=== PATIENT | female | born 1960 | race Caucasian/White ===

== ENCOUNTER 2016-11-29 20:31 | Emergency (ER) | payer BC, OTHER ==
[2016-11-29] MEDS ORDERED: ONDANSETRON 4 MG ODT STARTER PACK 2 TAB BTL PO STA (21:53)
[2016-11-29] MEDS ORDERED: LORazepam 1 MG TAB PO STA (21:55)
[2016-11-29] MEDS ORDERED: MECLIZINE 12.5 MG TAB PO STA (21:56)
--- NOTE | 2016-11-29 22:23 | ED ---
Dizziness HPI - General Chief Complaint: Dizziness Stated Complaint: Dizzy/Faint Time Seen by Provider: 11/29/16 21:20 Source: patient, RN notes reviewed Mode of arrival: wheelchair Limitations: no limitations - History of Present Illness Initial Comments: Patient is a 56-year-old female presenting to the with chief complaint of vertigo-like dizziness for approximately 3 days. Patient reports that she saw her primary care physician was given a prescription for meclizine and instructed to double maneuvers to help with her symptoms area patient reports that her vertigo is intermittently and only with total laying down position. Patient states that she does feel that she is has fluid in her ear. Patient reports is her first time that she has had vertigo. Patient reports that she feels significant sinus congestion and pressure. Patient reports that she does not take like taking decongestants as they do make her heart feels racing. Patient denies any headache or peripheral paresthesias or neurological symptoms at this time. She denies any vertigo at this time take this only when she lays completely flat. She denies any dizziness with rotation of the head. Patient is a non smoker, denies any cardiac history, and has no history of hypertension. She denies changes in vision, chest pain, shortness of breath, abdominal pain, vomiting. Patient denies changes in bowel or bladder habits. - Related Data Home Medications Medication Instructions Recorded Confirmed Pantoprazole Sodium [Protonix] 40 mg PO BID 07/23/15 11/29/16 Ranitidine HCl [Zantac] 150 mg PO HS 07/23/15 11/29/16 Fluticasone Nasal [place] [Flonase 2 sprays EA NOSTRIL DAILY 11/29/16 11/29/16 Nasal [place]] Ibuprofen [Advil] 200 mg PO Q8HR PRN 11/29/16 11/29/16 Loratadine [Claritin] 10 mg PO DAILY 11/29/16 11/29/16 Meclizine [Antivert] 25 mg PO TID PRN 11/29/16 11/29/16 Previous Rx's Medication Instructions Recorded LORazepam [Ativan] 0.5 mg PO BID #10 tab 11/29/16 Ondansetron Odt [Zofran ODT] 4 mg PO Q8HR PRN #12 tab 11/29/16 Allergies Allergy/AdvReac Type Severity Reaction Status Date / Time codeine Allergy Unknown Verified 11/29/16 21:08 levofloxacin [From Levaquin] Allergy Unknown Verified 11/29/16 21:08 Review of Systems ROS Statement: Those systems with pertinent positive or pertinent negative responses have been documented in the HPI. ROS Other: All systems not noted in ROS Statement are negative. Past Medical History Past Medical History: GERD/Reflux Additional Past Medical History / Comment(s): vertigo History of Any Multi-Drug Resistant Organisms: None Reported Past Surgical History: Breast Surgery, Cholecystectomy, Tubal Ligation Past Psychological History: Anxiety Smoking Status: Never smoker Past Alcohol Use History: Rare Past Drug Use History: None Reported General Exam - General Exam Comments Initial Comments: Patient is a well-appearing 56-year-old female. She is on appear to be in any acute distress. Limitations: no limitations General appearance: alert, in no apparent distress Head exam: Present: atraumatic, normocephalic, normal inspection Eye exam: Present: normal appearance, PERRL, EOMI. Absent: scleral icterus, conjunctival injection, periorbital swelling ENT exam: Present: normal exam, normal oropharynx, mucous membranes moist, TM's normal bilaterally (Patient has evidence of fluid in bilateral eardrums.) Neck exam: Present: normal inspection, full ROM. Absent: tenderness, meningismus, lymphadenopathy Respiratory exam: Present: normal lung sounds bilaterally. Absent: respiratory distress, wheezes, rales, rhonchi, stridor Cardiovascular Exam: Present: regular rate, normal rhythm, normal heart sounds. Absent: systolic murmur, diastolic murmur, rubs, gallop, clicks GI/Abdominal exam: Present: soft, normal bowel sounds. Absent: distended, tenderness, guarding, rebound, rigid Extremities exam: Present: normal inspection, full ROM, normal capillary refill. Absent: tenderness, pedal edema, joint swelling, calf tenderness Back exam: Present: normal inspection Neurological exam: Present: alert, oriented X3, CN II-XII intact Expanded Patient oriented to: Present: person, place, time Speech: Present: fluid speech Cranial nerves: EOM's Intact: Normal, Gag Reflex: Normal, Tongue Deviation: Normal, Nystagmus: Abnormal Right (Patient does have evidence of right-sided horizontal nystagmus.) Cerebellar function: Finger to Nose: Normal Upper motor neuron: William Neglect: Normal, Pronator Drift: Normal Sensory exam: Upper Extremity Light Touch: Normal, Lower Extremity Light Touch: Normal Motor strength exam: RUE: 5, LUE: 5, RLE: 5, LLE: 5 Eye Response: (4) open spontaneously Motor Response: (6) obeys commands Verbal Response: (5) oriented [place] Total: 15 (Patient has negative Romberg sign. Patient is able to ambulate throughout the emergency room with no evidence of altered gait.) Psychiatric exam: Present: normal affect, normal mood Skin exam: Present: warm, dry, intact, normal color. Absent: rash Course Vital Signs 11/29/16 11/29/16 20:51 22:55 Temperature 98.0 F 97.0 F L Pulse Rate 86 76 Respiratory 18 16 Rate Blood Pressure 136/85 159/89 O2 Sat by Pulse 98 97 Oximetry Medical Decision Making - Medical Decision Making Patient is a 56 year old female with intermittent vertigo for the past 3 days. Patient reports she saw her primary care and was instructed to do different maneuvers to help with the vertigo, patient reports that when she attempted lorene manuevers this caused the room to spin worse and she felt nauseated. Patient reports the vertigo is worse when laying flat and on her right side. Patient states she took one meclizine today. Patient has no neurological deficits at this time. Patient has negative cardiac histrory and is a non smoker. Patient reports that she feels well when sitting in bed, and denies vertigo at this time. Patient does have horizontal nystagmas with right sided gaze. Patient will be given a referral to ENT, Rx for Zofran and Ativan for her vertigo symptoms. PAtient also advised to use a decongestant to remove some of the fluid in the ears that is causing the vertigo. Return parameters discussed, patient understands treatment plan and will comply. Patient case was discussed with Dr. Lopez, and patient will be discharged home at this time. Disposition Clinical Impression: Benign paroxysmal positional vertigo Disposition: HOME SELF-CARE Condition: Good Instructions: Dizziness (ED), Benign Paroxysmal Positional Vertigo (ED) Additional Instructions: Patient instructed to follow-up with ENT specialist in one to 2 days. Patient is advised to follow-up with primary care in addition as well. Patient instructed to return to the [facility] if any alarming signs or symptoms occur. Prescriptions: LORazepam [Ativan] 0.5 mg PO BID #10 tab Ondansetron Odt [Zofran ODT] 4 mg PO Q8HR PRN #12 tab PRN Reason: Nausea Referrals: Dominique Hirsch DO [Primary Care Provider] - 1-2 days Royal Rodriguez MD [STAFF PHYSICIAN] - 1-2 days Time of Disposition: 21:50
[2016-11-29 22:57] VITALS: BP 159/89; PULSE 76; RESP 16; TEMP 97
== END 2016-11-29 22:55 | disposition home or self-care (01) ==
LOC: EC 20:31
DX: H81.10 Benign paroxysmal vertigo, unspecified ear (principal); Z79.899 Other long term (current) drug therapy; Z88.5 Allergy status to narcotic agent; Z88.1 Allergy status to other antibiotic agents; K21.9 Gastro-esophageal reflux disease without esophagitis
CPT/HCPCS: 99283; S0119

== ENCOUNTER → 2017-05-24 | Outpatient (CLI) | payer OTHER ==
--- NOTE | 2017-05-24 12:19 | XR ---
Sinus HISTORY: Right maxillary sinus pain 4 views of the sinuses No air-fluid levels to suggest acute sinusitis. Bone mineralization is maintained. Orbits appear inta ct. IMPRESSION: Correlate for point tenderness to assess for sinusitis. Sinus CT may be of benefit.
== END | disposition home or self-care (01) ==
LOC: RADXRYALE 12:03
PROVIDERS: ATTEND Family Medicine
DX: J34.9 Unspecified disorder of nose and nasal sinuses (principal)
CPT/HCPCS: 70220

== ENCOUNTER → 2017-11-25 | Outpatient (CLI) | payer BC | LOC: RADUSWWP 15:40 | PROVIDERS: ATTEND Family Medicine | DX: Z53.9 Procedure and treatment not carried out, unspecified reason (principal) ==

== ENCOUNTER → 2017-12-06 | Outpatient (CLI) | payer BC ==
--- NOTE | 2017-12-06 21:52 | US ---
EXAMINATION TYPE: US thyroid st tissue head/neck DATE OF EXAM: 12/06/2017 COMPARISON: Thyroid ultrasound January 24, 2012 CLINICAL HISTORY: E04.2 NONTOXIC MULTINODULAR GOITER. follow up GLAND SIZE: Right Lobe: 4.9 x 1.2 x 1.7 cm Overall Parenchyma: heterogenous Left Lobe: 3.8 x 1.3 x 1.4 cm Overall Parenchyma: heterogeneous Isthmus Thickness: 0.2 cm NODULES RIGHT: # of nodules measured on right: 2 1. 0.7 X 0.6 x 0.6 cm hypoechoic solid nodule at the upper pole with well-defined margins. This no dule is wider than tall and shows intranodular vascularity. Prior size: 0.5 x 0.5 x 0.6 cm 2. 0.5 X 0.4 x 0.6 cm hypoechoic solid nodule at the lower pole with well-defined margins. This nod ule is wider than tall and shows intranodular vascularity. Prior size: 0.4 x 0.4 x 0.4 cm LEFT: # of nodules measured on left: 2 1. 0.9 X 0.8 x 0.5 cm hypoechoic solid nodule at the upper pole with well-defined margins. This no dule is wider than tall and shows intranodular vascularity. Prior size: 0.6 x 0.6 x 0.5cm 2. 0.5 X 0.2 x 0.4 cm hypoechoic solid nodule at the lower pole with well-defined margins. This nod ule is wider than tall and shows no intranodular vascularity. Prior size: 0.3 x 0.2 x 0.4 cm ISTHMUS: # of nodules measured in the isthmus: 0 Bilateral neck scanned, no evidence of lymphadenopathy. IMPRESSION: There is heterogeneous small size thyroid gland was cyst stable scattered small nodules r edemonstrated but no new suspicious greater than 1 cm solid or cystic nodules identified bilaterally.
== END | disposition home or self-care (01) ==
LOC: RADUSWWP 15:27
PROVIDERS: ATTEND Family Medicine
DX: E04.2 Nontoxic multinodular goiter (principal)
CPT/HCPCS: 76536

== ENCOUNTER 2019-02-23 16:48 | Emergency (ER) | payer BC ==
[2019-02-23 16:53] VITALS: BP 144/85; PULSE 74; RESP 18; TEMP 98.1
--- NOTE | 2019-02-23 17:25 | ED ---
Lower Extremity Injury HPI - General Chief Complaint: Extremity Injury, Lower Stated Complaint: lt ankle injury Time Seen by Provider: 02/23/19 17:04 Source: patient Mode of arrival: ambulatory Limitations: no limitations - History of Present Illness Initial Comments: 59-year-old female presenting today for chief complaint of left ankle pain. Patient states Saturday she rolled her ankle while walking. She states a few days prior she had hit the same ankle on the lateral aspect with a part of a dog leash causing a bruise. Patient states she was able to ambulate after both rolling her ankle and hitting it with the dog leash. She states the pain has been persistent and there is significant swelling of the left ankle. Patient was concerned of fracture present for evaluation emergency department. Patient denies numbness tingling loss sensation patient is able to range at the left ankle however is tender. Remaining review of systems negative patient denies fall injury to head neck or back or any other extremity. Remaining review of systems negative. Pt denies anticoagulation use. - Related Data Home Medications Medication Instructions Recorded Confirmed Pantoprazole Sodium [Protonix] 40 mg PO BID 07/23/15 11/29/16 Ranitidine HCl [Zantac] 150 mg PO HS 07/23/15 11/29/16 Fluticasone Nasal [place] [Flonase 2 sprays EA NOSTRIL DAILY 11/29/16 11/29/16 Nasal [place]] Ibuprofen [Advil] 200 mg PO Q8HR PRN 11/29/16 11/29/16 Loratadine [Claritin] 10 mg PO DAILY 11/29/16 11/29/16 Meclizine [Antivert] 25 mg PO TID PRN 11/29/16 11/29/16 Previous Rx's Medication Instructions Recorded LORazepam [Ativan] 0.5 mg PO BID #10 tab 11/29/16 Ondansetron Odt [Zofran ODT] 4 mg PO Q8HR PRN #12 tab 11/29/16 Allergies Allergy/AdvReac Type Severity Reaction Status Date / Time codeine Allergy Unknown Verified 02/23/19 16:53 levofloxacin [From Levaquin] Allergy Unknown Verified 02/23/19 16:53 Review of Systems ROS Statement: Those systems with pertinent positive or pertinent negative responses have been documented in the HPI. ROS Other: All systems not noted in ROS Statement are negative. Past Medical History Past Medical History: GERD/Reflux Additional Past Medical History / Comment(s): vertigo History of Any Multi-Drug Resistant Organisms: None Reported Past Surgical History: Breast Surgery, Cholecystectomy, Tubal Ligation Past Psychological History: Anxiety Smoking Status: Never smoker Past Alcohol Use History: Rare Past Drug Use History: None Reported General Exam - General Exam Comments Initial Comments: General: The patient is awake and alert, in no distress, and does not appear acutely ill. Eye: Pupils are equal, round and reactive to light, extra-ocular movements are intact. No nystagmus. There is normal conjunctiva bilaterally. No signs of icterus. Ears, nose, mouth and throat: There are moist mucous membranes and no oral lesions. Neck: The neck is supple, there is no tenderness or JVD. Cardiovascular: There is a regular rate and rhythm. No murmur, rub or gallop is appreciated. Respiratory: Lungs are clear to auscultation, respirations are non-labored, breath sounds are equal. No wheezes, stridor, rales, or rhonchi. Gastrointestinal: [Soft, non-distended, non-tender abdomen without masses or organomegaly noted. There is no rebound or guarding present. No CVA tenderness. Bowel sounds are unremarkable.] Musculoskeletal: Upon inspection of the ankles bilaterally there is ecchymosis over the left lateral ankle and swelling along the lateral malleolus. Patient is diffusely tender a patient of the lateral aspect of the left ankle joint. Normal ROM, with no tenderness of the right ankle, patient does admit to pain with range of motion at the left ankle however she is able to fully range. Strength 5/5 of the right ankle patient refuses to fully strength test at the left ankle secondary to discomfort. Sensation intact both proximal and distal to injury site. DP pulses equal bilaterally 2+. Neurological: A&O x 3. CN II-XII intact, There are no obvious motor or sensory deficits. Coordination appears grossly intact. Speech is normal. Skin: Skin is warm and dry and no rashes or lesions are noted. Psychiatric: Cooperative, appropriate mood & affect, normal judgment. Limitations: no limitations Course Vital Signs 02/23/19 16:50 Temperature 98.1 F Pulse Rate 74 Respiratory 18 Rate Blood Pressure 144/85 O2 Sat by Pulse 99 Oximetry Medical Decision Making - Medical Decision Making Well-appearing 59-year-old female presenting for left ankle pain. Patient states she rolled her left ankle inward about 4 days ago. Patient states pain has been persistent as as well as swelling and ecchymosis. Pt is neurovascularly intact. Imaging studies revealed no acute osseous injury, most likely ankle sprain. Patient was placed in Air-Stirrup's. I discussed return parameters as well as importance of follow-up outpatient in 2-3 days with orthopedic surgery. Patient was provided prescription for crutches for comfort. Patient verbalized understanding to both return parameters and follow-up. Patient is agreeable dis charge this time as well as symptomatic treatment with ice elevation and compression and rest. Patient will continue to take ibuprofen and Tylenol for pain management as needed. Patient discharged appearing well after discussed the case at time provider Dr. Gardner Disposition Clinical Impression: Left ankle sprain, Left ankle pain Disposition: HOME SELF-CARE Condition: Good Instructions (If sedation given, give patient instructions): Ankle Sprain (ED), R.I.C.E. Treatment (ED) Additional Instructions: Please use medication as discussed. Please follow-up with orthopedic surgery in the next 2-3 days. Please return to emergency room if the symptoms increase or worsen or for any other concerns. Is patient prescribed a controlled substance at d/c from ED?: No Referrals: Dominique Hirsch DO [Primary Care Provider] - 1-2 days Mack Houston MD [Medical Doctor] - 1-2 days Time of Disposition: 18:04
--- NOTE | 2019-02-23 17:54 | XR ---
EXAMINATION TYPE: XR ankle complete LT DATE OF EXAM: 02/23/2019 CLINICAL HISTORY: Lateral pain and swelling after injury. TECHNIQUE: Frontal, lateral and oblique images of the left ankle are obtained. COMPARISON: None. FINDINGS: There is no acute fracture/dislocation evident in the left ankle. The ankle mortise appea rs within normal limits. There is mild subcutaneous edema fairly diffusely slightly more prominent ov er the lateral malleolus. Incidental moderate size inferior calcaneal spur. IMPRESSION: There is no acute fracture or dislocation in the left ankle.
== END 2019-02-23 18:10 | disposition home or self-care (01) ==
LOC: EC 16:48
DX: S93.402A Sprain of unspecified ligament of left ankle, initial encounter (principal); K21.9 Gastro-esophageal reflux disease without esophagitis; F41.9 Anxiety disorder, unspecified; Z79.899 Other long term (current) drug therapy; Z88.1 Allergy status to other antibiotic agents; Z88.5 Allergy status to narcotic agent; X50.1XXA Overexertion from prolonged static or awkward postures, initial encounter; Y93.01 Activity, walking, marching and hiking
CPT/HCPCS: 29515; 99283

== ENCOUNTER → 2020-06-09 | Outpatient (CLI) | payer BC ==
[2020-06-09 16:55] LABS: Chol/HDL Ratio 3.59; LDL Cholesterol,Calculated 161.4 mg/dL (0.0-131.0); VLDL Calculation 14.6 mg/dL (5.00-40.00)
[2020-06-09 17:47] LABS: Hemoglobin A1C 5.8 % (4.0-6.0)
== END | disposition home or self-care (01) ==
LOC: LABWHC1 09:17
PROVIDERS: ATTEND Nurse Practitioner Family
DX: E78.2 Mixed hyperlipidemia (principal); E55.9 Vitamin D deficiency, unspecified; R73.01 Impaired fasting glucose
CPT/HCPCS: 36415; 80061; 82306; 83036

== ENCOUNTER → 2020-06-09 | Outpatient (CLI) | payer BC ==
--- NOTE | 2020-06-09 09:21 | CT ---
EXAMINATION TYPE: CT sinus wo con DATE OF EXAM: 06/09/2020 COMPARISON: None HISTORY: Sinus pain and pressure CT DLP: 648 mGycm. Automated Exposure Control for Dose Reduction was Utilized. TECHNIQUE: CT scan of the sinuses is performed without contrast, axial images are obtained, coronal r eformatted images are also reviewed. FINDINGS: The paranasal sinuses including the frontal, ethmoid, sphenoid, and maxillary sinuses bila terally are well-aerated without abnormal opacification. The ostiomeatal complex is patent bilateral ly on the coronal images. Bilateral Delicia cells are noted. Visualized portion of mastoid air cells show no abnormal opacification. The globes are intact bilate rally. IMPRESSION: The sinuses are clear and the ostiomeatal complex is patent bilaterally.
--- NOTE | 2020-06-09 10:28 | US ---
EXAMINATION TYPE: US thyroid st tissue head/neck DATE OF EXAM: 06/09/2020 COMPARISON: CLINICAL HISTORY: E04.2 goiter. Follow up thyroid nodules. No bx. GLAND SIZE: Right Lobe: 4.6 x 1.5 x 1.5 cm Overall Parenchyma: heterogenous Left Lobe: 3.9 x 1.5 x 1.3 cm Overall Parenchyma: heterogeneous Isthmus Thickness: 0.2 cm NODULES RIGHT: # of nodules measured on right: 0 1. 0.7 X 0.6 x 0.6 cm hypoechoic nodule at the upper pole with well-defined margins. This nodule i s wide as tall and shows intranodular vascularity. Prior size: 0.7 x 0.6 x 0.6 cm 2. 0.7 X 0.6 x 0.5 cm mixed nodule at the mid/lower pole with well-defined margins. This nodule is wider than tall and shows intranodular vascularity. Prior size: 0.5 x 0.4 x 0.6 cm LEFT: # of nodules measured on left: 2 1. 1.0 X 0.7 x 0.5 cm hypoechoic mixed nodule at the upper pole with well-defined margins. This no dule is wider than tall and shows intranodular vascularity. Prior size: 1.0 x 0.8 x 0.5 cm 2. 0.3 X 0.2 x 0.2 cm hypoechoic nodule at the lower pole with well-defined margins. This nodule is wide as tall and shows no intranodular vascularity. Prior size: 0.5 x 0.2 x 0.4 cm ISTHMUS: # of nodules measured in the isthmus: 0 Bilateral neck scanned, no evidence of lymphadenopathy. Gland is somewhat heterogeneous echotexture IMPRESSION: Essentially stable thyroid ultrasound
== END | disposition home or self-care (01) ==
LOC: RADCTMAIN 08:35
PROVIDERS: ATTEND Family Medicine
DX: J30.1 Allergic rhinitis due to pollen (principal); E04.2 Nontoxic multinodular goiter
CPT/HCPCS: 70486; 76536

== ENCOUNTER → 2021-01-26 | Outpatient (CLI) | payer BC ==
--- NOTE | 2021-02-06 10:14 | MM ---
Reason for exam: screening (asymptomatic). Last mammogram was performed 1 year and 6 months ago. History: Patient is postmenopausal. Family history of breast cancer in maternal aunt at age 50 and breast cancer in paternal cousin. US Left CoreBiopsy of the left breast, 2000. Excisional biopsy of the left breast. Excisional biopsy of the right breast. Physical Findings: A clinical breast exam by your physician is recommended on an annual basis and results should be correlated with mammographic findings. MG 3D Screening Mammo W/Cad Bilateral CC and MLO view(s) were taken. Prior study comparison: July 27, 2019, mammogram, performed at [facility]. July 28, 2015, mammogram, performed at [facility]. The breast tissue is heterogeneously dense. This may lower the sensitivity of mammography. Stable benign calcifications. There is no discrete abnormality. No significant changes when compared with prior studies. ASSESSMENT: Benign, BI-RAD 2 RECOMMENDATION: Routine screening mammogram of both breasts in 1 year.
== END | disposition home or self-care (01) ==
LOC: RADMAMWWP 09:04
PROVIDERS: ATTEND Obstetrics & Gynecology
DX: Z12.31 Encounter for screening mammogram for malignant neoplasm of breast (principal)
CPT/HCPCS: 77063; 77067

== ENCOUNTER 2022-02-27 06:52 | Day surgery (SDC) | payer BC ==
[2022-02-02 14:15] VITALS: BMI 37.9
[~2022-02-27 06:52] MED LIST: LACTATED RINGERS 1,000 ML IV SCH; LIDOCAINE 1% (10MG/ML) FOR IV START INTRADERMA PRN
[2022-02-27 07:12] VITALS: RESP 16; TEMP 98
[2022-02-27] MEDS ORDERED: LIDOCAINE 1% INJ 10MG/ML (20 ML MDV) ONE (08:05)
[2022-02-27] MEDS ORDERED: PROPOFOL 10 MG/ML 20 ML VIAL IV ONE (08:05)
--- NOTE | 2022-02-27 08:18 | P.PCN ---
Date of Procedure: 02/27/22 Procedure(s) Performed: BRIEF HISTORY: Patient is a 62-year-old pleasant 5. scheduled for an elective colonoscopy as a part of screening for colorectal neoplasia. Her last colonoscopy was 10 years ago. PROCEDURE PERFORMED: Colonoscopy. PREOPERATIVE DIAGNOSIS: Screening for colon cancer. IV sedation per Anesthesia. PROCEDURE: After informed consent was obtained, the patient, was brought into the endoscopy unit. IV sedation was administered by Anesthesia under continuous monitoring. Digital rectal examination was normal. Initially the Olympus CF-160 flexible video colonoscope was then inserted in the rectum, gradually advanced into the cecum without any difficulty. Careful examination was performed as the scope was gradually being withdrawn. Ileocecal valve and the appendiceal orifice were visualized and appeared normal. Prep was excellent. Mucosa of the cecum, ascending colon, transverse colon, descending colon, sigmoid colon, and rectum appeared normal. Retroflexion was performed in the rectum and no lesions were seen. The patient tolerated the procedure well. IMPRESSION: Normal-appearing colon from rectum to cecum with no evidence of colorectal neoplasia. RECOMMENDATIONS: Findings of this examination were discussed with the patient as well as her family. She was advised to have repeat screening colonoscopy in 10 years..
[2022-02-27 08:38] VITALS: BP 116/80; PULSE 79
== END 2022-02-27 08:56 | disposition home or self-care (01) ==
LOC: ORWHC2ENDO 06:52
PROVIDERS: ATTEND Internal Medicine Gastroenterology
DX: Z12.11 Encounter for screening for malignant neoplasm of colon (principal); R42 Dizziness and giddiness; Z79.899 Other long term (current) drug therapy
CPT/HCPCS: J2001; J2704; G0121

== ENCOUNTER → 2022-08-13 | Outpatient (CLI) | payer BC ==
--- NOTE | 2022-08-13 11:01 | MM ---
Reason for Exam: Screening (asymptomatic). Last mammogram was performed 1 year(s) and 7 month(s) ago. Patient History: Menarche at age 15. First Full-Term at age 25. Postmenopausal. 2000, Core Biopsy on the Left side. Excisional Biopsy on the Left side. Excisional Biopsy on the Right side. Paternal cousin had breast cancer. Maternal aunt had breast cancer, age 50. Risk Values: Monica 5 year model risk: 1.9%. NCI Lifetime model risk: 9.7%. Prior Study Comparison: 07/28/2015 Screening Mammogram, [facility] . 07/27/2019 Screening Mammogram, [facility] . 01/26/2021 Bilateral Screening Mammogram, [facility]. Tissue Density: The breast tissue is heterogeneously dense. This may lower the sensitivity of mammography. Findings: Analyzed By CAD. Few small scattered benign-appearing rounded dystrophic calcifications bilaterally are redemonstrated. There is enlarging 12 mm round mass in the middle depth upper outer aspect right breast CC image 40 and MLO image 28. Some additional smaller round masses are stable bilaterally. Overall Assessment: Incomplete: need additional imaging evaluation, BI-RAD 0 Management: Diagnostic Breast Ultrasound of the right breast. Targeted ultrasound right breast. Electronically signed and approved by: Balwinder Kent M.D.
== END | disposition home or self-care (01) ==
LOC: RADMAMWWP 07:34
PROVIDERS: ATTEND Obstetrics & Gynecology
DX: Z12.31 Encounter for screening mammogram for malignant neoplasm of breast (principal); Z78.0 Asymptomatic menopausal state; Z80.3 Family history of malignant neoplasm of breast
CPT/HCPCS: 77063; 77067

== ENCOUNTER → 2022-08-14 | Day surgery (SDC) | payer BC ==
[~2022-08-14] MED LIST changes: +LACTATED RINGERS 1,000 ML IV ONE; +LIDOCAINE 2% INJ 20 MG/ML (2 ML VIAL) ONE; +ONDANSETRON 4 MG/2 ML VIAL IVP PRN; +PROPOFOL 10 MG/ML 20 ML VIAL IV ONE
[2022-08-14 08:27] VITALS: TEMP 97.8
--- NOTE | 2022-08-14 09:26 | P.PCN ---
Date of Procedure: 08/14/22 Procedure(s) Performed: BRIEF HISTORY: Patient is a 62-year-old, pleasant, white female scheduled for an upper endoscopy as a part of evaluation of gastroesophageal reflux symptoms of several years duration. She is presently on Protonix 40 mg daily and Pepcid at bedtime and doing well. PROCEDURE PERFORMED: Esophagogastroduodenoscopy with biopsy. PREOPERATIVE DIAGNOSIS: Long-standing history of GERD. IV sedation per anesthesia. PROCEDURE: After informed consent was obtained, the patient was brought into the endoscopy unit. IV sedation was administered by Anesthesia under continuous monitoring. Initially the Olympus GIF-140 video endoscope was inserted into the mouth. Esophagus intubated without any difficulty. It was gradually advanced into the stomach and duodenum and carefully examined. The bulb and the second part of the duodenum appeared normal. The scope at this time was withdrawn to the stomach, adequately insufflated with air, and upon careful examination, mucosa of the antrum, had mild gastritis and biopsies were done from this area. The body, cardia and the fundus appeared normal. The scope was then withdrawn into the esophagus. Small sliding Hiatal hernia noted. The GE junction was located at 35 cm from the incisors. The esophagus appeared normal. There were no erosions or ulcerations seen and the patient tolerated the procedure well. IMPRESSION: 1. Small sliding-type hiatal hernia but no evidence of esophagitis or Weller's. 2. Mild antral gastritis. RECOMMENDATIONS: The findings of this examination were discussed with the patient as well as a family. She was advised to follow with the biopsy results. Continue with Protonix 40 mg daily Bedtime and follow antireflux measures.
[2022-08-14 09:37] VITALS: PULSE 82; RESP 16
[2022-08-14 09:55] VITALS: BP 147/98
== END ==
LOC: ORWHC2ENDO 07:52
PROVIDERS: ATTEND Internal Medicine Gastroenterology
DX: K44.9 Diaphragmatic hernia without obstruction or gangrene (principal); K29.50 Unspecified chronic gastritis without bleeding
CPT/HCPCS: 88305; 43239; J2704; J2001

== ENCOUNTER → 2022-08-17 | Outpatient (CLI) | payer BC ==
--- NOTE | 2022-08-17 08:55 | USB ---
Reason for Exam: Additional evaluation requested from abnormal screening. Patient History: Menarche at age 15. First Full-Term at age 25. Postmenopausal. 2000, Core Biopsy on the Left side. Excisional Biopsy on the Left side. Excisional Biopsy on the Right side. Paternal cousin had breast cancer. Maternal aunt had breast cancer, age 50. Risk Values: Monica 5 year model risk: 1.9%. NCI Lifetime model risk: 9.7%. Prior Study Comparison: 07/27/2019 Screening Mammogram, [facility] . 01/26/2021 Bilateral Screening Mammogram, [facility]. 08/13/2022 Bilateral MG 3D screening mammo w/cad, [facility]. Findings: The upper outer quadrant of the right breast, the axilla of the right breast and the retroareolar of the right breast were scanned. There is a 1.2 x 0.8 x 0.6 cm anechoic lesion with posterior wall enhancement and good through transmission compatible with a cyst. This area appears to correlate with the mammogram. Overall Assessment: Benign, BI-RAD 2 Management: Screening Mammogram of both breasts in 1 year. A clinical breast exam by your physician is recommended on an annual basis and results should be correlated with mammographic findings. Electronically signed and approved by: Gary Salgado D.O. Radiologis
== END | disposition home or self-care (01) ==
LOC: RADUSWWP 07:33
PROVIDERS: ATTEND Obstetrics & Gynecology
DX: R92.8 Other abnormal and inconclusive findings on diagnostic imaging of breast (principal); Z78.0 Asymptomatic menopausal state; Z80.3 Family history of malignant neoplasm of breast

== ENCOUNTER → 2022-11-06 | Outpatient (CLI) | payer BC ==
[2022-11-06 14:38] LABS: Basophils # (A) 0.04 X 10*3/uL (0.00-0.10); Basophils % (A) 0.6 %; Eosinophils # (A) 0.18 X 10*3/uL (0.04-0.35); Eosinophils % (A) 2.8 %; HCT 42.8 % (37.2-46.3); HGB 14.1 g/dL (12.0-15.0); Immature Grans, Automated 0.2 %; Lymphocytes # (A) 2.45 X 10*3/uL (0.90-5.00); Lymphocytes % (A) 38.6 %; MCH 31.6 pg (27.0-32.0); MCHC 32.9 g/dL (32.0-37.0); Monocytes # (A) 0.36 X 10*3/uL (0.20-1.00); Monocytes % (A) 5.7 %; NRBC Per 100 WBC 0 /100 WBCS (0.0-0.0); Neutrophils % (A) 52.1 %; Platelet Count 270 X 10*3/uL (140-440); RBC 4.46 X 10*6/uL (4.10-5.20); RDW 12.2 % (11.5-14.5); WBC 6.34 X 10*3/uL (4.50-10.00)
[2022-11-06 14:50] LABS: Chol/HDL Ratio 4.11 Ratio; LDL Cholesterol,Calculated 148.7 mg/dL (0.0-131.0)
== END | disposition home or self-care (01) ==
LOC: LABWHC1 09:34
PROVIDERS: ATTEND Family Medicine
DX: Z13.1 Encounter for screening for diabetes mellitus (principal); Z13.220 Encounter for screening for lipoid disorders; K21.9 Gastro-esophageal reflux disease without esophagitis; E04.1 Nontoxic single thyroid nodule
CPT/HCPCS: 36415; 80061; 83036; 84439; 84443; 85025

== ENCOUNTER → 2023-12-18 | Outpatient (CLI) | payer BC ==
--- NOTE | 2023-12-19 08:22 | MM ---
Reason for Exam: Screening (asymptomatic). Last mammogram was performed 1 year(s) and 4 month(s) ago. Patient History: Menarche at age 15. First Full-Term at age 25. Postmenopausal. 2000, Core Biopsy on the Left side. Excisional Biopsy on the Left side. Excisional Biopsy on the Right side. Paternal cousin had breast cancer. Maternal aunt had breast cancer, age 50. Risk Values: Monica 5 year model risk: 2.0%. NCI Lifetime model risk: 9.5%. Prior Study Comparison: 07/28/2015 Screening Mammogram, [facility] . 07/27/2019 Screening Mammogram, [facility] . 01/26/2021 Bilateral Screening Mammogram, [facility]. 08/13/2022 Bilateral MG 3D screening mammo w/cad, [facility]. Tissue Density: The breast tissue is heterogeneously dense. This may lower the sensitivity of mammography. Findings: Analyzed By CAD. There is no suspicious group of microcalcifications or new suspicious mass in either breast. Overall Assessment: Benign, BI-RAD 2 Management: Screening Mammogram of both breasts in 1 year. . Patient should continue monthly self-breast exams. A clinical breast exam by your physician is recommended on an annual basis. This exam should not preclude additional follow-up of suspicious palpable abnormalities. Note on Monica scores and lifetime risk: 1. A Monica score greater than 3% is considered moderate risk. If this is the case, consider specialist referral to assess eligibility for a risk reducing agent. 2. If overall lifetime risk for the development of breast cancer is 20% or higher, the patient may qualify for future screening with alternating mammogram and breast MRI. Electronically signed and approved by: Gabino Ruiz M.D. Radiologis
== END | disposition home or self-care (01) ==
LOC: RADMAMWWP 07:08
PROVIDERS: ATTEND Obstetrics & Gynecology
DX: Z12.31 Encounter for screening mammogram for malignant neoplasm of breast (principal); Z80.3 Family history of malignant neoplasm of breast; Z78.0 Asymptomatic menopausal state
CPT/HCPCS: 77063; 77067

== ENCOUNTER → 2025-01-27 | Outpatient (CLI) | payer BC ==
--- NOTE | 2025-01-27 08:19 | MM ---
Reason for Exam: Screening (asymptomatic). Last mammogram was performed 1 year(s) and 1 month(s) ago. Patient History: Menarche at age 15. First Full-Term at age 25. Postmenopausal. 2000, Core Biopsy on the Left side. Excisional Biopsy on the Left side. Excisional Biopsy on the Right side. Paternal cousin had breast cancer. Maternal aunt had breast cancer, age 50. Risk Values: Monica 5 year model risk: 2.1%. NCI Lifetime model risk: 9.2%. Prior Study Comparison: 01/26/2021 Bilateral Screening Mammogram, [facility]. 08/13/2022 Bilateral MG 3D screening mammo w/cad, [facility]. 12/18/2023 Bilateral MG 3D screening mammo w/cad, [facility]. Tissue Density: The breasts are extremely dense, which lowers the sensitivity of mammography. Findings: Analyzed By CAD. A few benign-appearing dystrophic calcifications in the left breast are redemonstrated. Benign appearing vascular calcification bilaterally is again seen. There is suspicion for new or enlarging 1.9 cm mass anterior depth medial aspect right breast on background dense tissue. Overall Assessment: Incomplete: need additional imaging evaluation, BI-RAD 0 Management: Diagnostic Mammogram of the right breast. Diagnostic Breast Ultrasound of the right breast. Advised spot 3-D and 3-D true lateral view of right breast and targeted ultrasound. Patient should continue monthly self-breast exams. A clinical breast exam by your physician is recommended on an annual basis. This exam should not preclude additional follow-up of suspicious palpable abnormalities. Note on Monica scores and lifetime risk: 1. A Monica score greater than 3% is considered moderate risk. If this is the case, consider specialist referral to assess eligibility for a risk reducing agent. 2. If overall lifetime risk for the development of breast cancer is 20% or higher, the patient may qualify for future screening with alternating mammogram and breast MRI. [facility], , 01/27/2025 8:16 AM. Electronically signed and approved by: Balwinder Kent M.D.
== END | disposition home or self-care (01) ==
LOC: RADMAMWWP 01-12 07:26
PROVIDERS: ATTEND Family Medicine
DX: Z53.9 Procedure and treatment not carried out, unspecified reason (principal)
CPT/HCPCS: 77063; 77067

== ENCOUNTER → 2025-01-29 | Outpatient (CLI) | payer BC ==
--- NOTE | 2025-01-29 15:39 | MM ---
Reason for Exam: Additional evaluation requested from abnormal screening. Last screening mammogram was performed less than 1 month ago. Patient History: Menarche at age 15. First Full-Term at age 25. Postmenopausal. 2000, Core Biopsy on the Left side. Excisional Biopsy on the Left side. Excisional Biopsy on the Right side. Paternal cousin had breast cancer, age 30. Maternal aunt had breast cancer, age 50. Risk Values: Monica 5 year model risk: 2.1%. NCI Lifetime model risk: 8.9%. Tissue Density: Right: The breasts are extremely dense, which lowers the sensitivity of mammography. Findings: Analyzed By CAD. A 15 mm obscured oval mass in the right breast slightly medial upper aspect remains present on additional views. Overall Assessment: Incomplete: need additional imaging evaluation, BI-RAD 0 Management: Diagnostic Breast Ultrasound of the right breast. Targeted ultrasound right breast. Results were given to the patient verbally at the time of exam. Patient should continue monthly self-breast exams. A clinical breast exam by your physician is recommended on an annual basis. This exam should not preclude additional follow-up of suspicious palpable abnormalities. Note on Monica scores and lifetime risk: 1. A Monica score greater than 3% is considered moderate risk. If this is the case, consider specialist referral to assess eligibility for a risk reducing agent. 2. If overall lifetime risk for the development of breast cancer is 20% or higher, the patient may qualify for future screening with alternating mammogram and breast MRI. [facility], , 01/29/2025 3:36 PM. Electronically signed and approved by: Balwinder Kent M.D.
--- NOTE | 2025-01-29 15:47 | USB ---
Reason for Exam: Additional evaluation requested from prior study. Patient History: Menarche at age 15. First Full-Term at age 25. Postmenopausal. 2000, Core Biopsy on the Left side. Excisional Biopsy on the Left side. Excisional Biopsy on the Right side. Paternal cousin had breast cancer, age 30. Maternal aunt had breast cancer, age 50. Risk Values: Monica 5 year model risk: 2.1%. NCI Lifetime model risk: 8.9%. Technique: Method: Targeted. Prior Study Comparison: 08/13/2022 Bilateral MG 3D screening mammo w/cad, [facility]. 12/18/2023 Bilateral MG 3D screening mammo w/cad, [facility]. 01/27/2025 Bilateral MG 3D screening mammo w/cad, [facility]. Findings: The upper section of the breast of the right breast, the axilla of the right breast and the retroareolar of the right breast were scanned. Targeted ultrasound shows a solid and cystic mass at 12:00 position 3 cm distance from nipple measuring 1.3 cm on axis parallel to the skin surface. Solid component has internal vascularity. Overall Assessment: Suspicious, BI-RAD 4 Management: Ultrasound Core Biopsy of the right breast. Tissue sampling is advised. A clinical breast exam by your physician is recommended on an annual basis and results should be correlated with mammographic findings. This exam should not preclude additional follow-up of suspicious palpable abnormalities. Results were given to the patient verbally at the time of exam. [facility], , 01/29/2025 3:44 PM. Electronically signed and approved by: Balwinder Kent M.D.
== END | disposition home or self-care (01) ==
LOC: RADMAMWWP 15:14
PROVIDERS: ATTEND Family Medicine
DX: R92.8 Other abnormal and inconclusive findings on diagnostic imaging of breast (principal); R92.341 Mammographic extreme density, right breast; Z78.0 Asymptomatic menopausal state; Z80.3 Family history of malignant neoplasm of breast
CPT/HCPCS: 77061; 77065

== ENCOUNTER → 2025-02-05 | Day surgery (SDC) | payer BC ==
--- NOTE | 2025-02-10 14:06 | MM ---
Reason for Exam: Post Procedure Mammogram. Last screening mammogram was performed less than 1 month ago. Patient History: Menarche at age 15. First Full-Term at age 25. Postmenopausal. 2000, Core Biopsy on the Left side. Excisional Biopsy on the Left side. Excisional Biopsy on the Right side. Paternal cousin had breast cancer, age 30. Maternal aunt had breast cancer, age 50. Risk Values: Monica 5 year model risk: 2.1%. NCI Lifetime model risk: 8.9%. Prior Study Comparison: 12/18/2023 Bilateral MG 3D screening mammo w/cad, [facility]. 01/27/2025 Bilateral MG 3D screening mammo w/cad, [facility]. 01/29/2025 Right MG 3D work up w/cad RT, [facility]. 01/29/2025 Right US breast workup limited RT, [facility]. Tissue Density: Right: The breasts are heterogeneously dense, which may obscure small masses. Findings: A postbiopsy demonstrates the surgical clip to be in the area of concern and appropriately positioned. Pathology Description: Location: 12 o'clock. Marker Left Behind. Needle Type: Bard 14g x 10cm Cores: 6 Skin Nicks: 1 Gauge: 14 The procedure of ultrasound guided core biopsy was explained to the patient. Benefits, alternatives, and risks were discussed. An informed consent was then obtained. The patient was placed in supine positioning for imaging and for the procedure. The overlying skin was prepped and draped in usual sterile fashion. Lidocaine buffered with bicarbonate was used as anesthetic into the skin and subcutaneous tissue up to area of concern in the right breast. A jeanmarie was made with surgical scalpel. Under ultrasound guidance, a 12-gauge vacuum assisted biopsy gun device was used to obtain 5 core samples. Following this, a biopsy clip was left in lesion. The patient tolerated the procedure well without any immediate complication. The patient was kept in the radiology department for short stay after the procedure and then discharged home in stable condition. Postprocedure mammogram: The patient was transferred to mammography for physician ordered post procedure mammogram for clip placement verification. Post procedure mammogram demonstrates appropriate placement of clip. Impression: Successful, uncomplicated ultrasound guided core biopsy of area of concern in the right breast, full pathology results to follow. [facility], , 02/05/2025 12:00 PM. Pathology Results: Result: High risk, Intraductual papilloma high risk. Pathology and radiology were reviewed. Findings are concordant. RIGHT BREAST, 12:00, ULTRASOUND GUIDED NEEDLE CORE BIOPSY: Intraductal papilloma with sclerosis and focal atypia. See note. Notes CK 5/6 immunostain performed on block A1 and evaluated with an appropriate positive control highlights a myoepithelial layer lining papillary structures within the lesion and at the periphery. Focally, the lesional epithelial cells demonstrate a monotonous appearance with loss of staining for CK 5/6. The results confirm the diagnosis of intraductal papilloma with focal atypia. Overall Assessment: High risk Assessment: MG diagnostic mammo RT wo CAD - Right: Suspicious, BI-RAD 4. Management: Surgical Consultation of the right breast. Needle localization open biopsy. Electronically signed and approved by: Kirby Dias M.D. Radiologis
== END ==
LOC: RADUSWWP 10:16
PROVIDERS: ATTEND Surgery
DX: R92.8 Other abnormal and inconclusive findings on diagnostic imaging of breast (principal); Z78.0 Asymptomatic menopausal state; Z80.3 Family history of malignant neoplasm of breast
CPT/HCPCS: 88305; 88342; 88341; 77065; 19083; A4648

== ENCOUNTER → 2025-02-17 | Outpatient (CLI) | payer BC ==
[2025-02-17 07:54] VITALS: BP 156/84; PULSE 83; RESP 16; TEMP 97.9
--- NOTE | 2025-02-17 08:35 | P.GSCN ---
History of Present Illness Consult date: 02/17/25 Reason for Consult: Atypical intraductal papilloma Requesting physician: Ilia Canada History of present illness: Khushboo is a 65-year-old female seen in consultation for Dr. Barrow regarding a biopsy-proven right breast 12:00 intraductal papilloma with sclerosis and focal atypia. She underwent a bilateral screening mammogram on 01-27-2025. This revealed a 1.9 cm mass anterior depth medial aspect right breast. Ultrasound of the right breast was recommended. No lesions of concern were identified in the left breast. The patient underwent a right breast ultrasound on 01-29-2025. Also underwent a diagnostic mammogram of the right breast at that time. This revealed a solid and cystic mass at 12:00 3 cm distance from the nipple. This was considered BI-RADS 4 and ultrasound core biopsy was recommended. Ultrasound core biopsy was performed on 02-05-2025. This revealed an intraductal papilloma with sclerosis and focal atypia. The radiographs were personally reviewed and discussed with Dr. Peacock and the lesion is slightly anterior medial to the clip. It is felt there was a cystic component to the lesion which has resolved, but the lesion should be removed. She gets routine mammograms. She has not felt anything of concern in either breast. She has had bilateral open breast biopsies for fibroadenomas in the remote past. She has no recent trauma or infection in the breast. She is not complaining of any nipple discharge or skin changes. Caffeine: 4 cups/day nicotine: none chocolate: used to eat twice a week but now has stopped BCP: never used hormone: none Family History: maternal aunt: from breat cancer paternal cousin: passed from breast cancer brother: passed lymphoma brother: esophogeal cancer Hormonal History: menarche: 15 M1, age at first live : 25, breast fed: no menopause: 49 Surgical History: tubaligation bilateral breast biopsies colonoscopies gallbladder Medical History: HTN obesity vertigo Social History: nicotine: none alcohol: monthly drugs: none Review of Systems - Constitutional Denies fever, Denies weight loss - EENT Eyes: denies blurred vision Ears: deny: decreased hearing, tinnitus Ears, nose, mouth and throat: Denies dysphagia - Breasts bilateral: as per HPI - Cardiovascular Denies chest pain, Denies shortness of breath - Respiratory Respiratory Comment(s): COVID 4 months ago, lingering caugh Denies cough, Denies 7 - Gastrointestinal Gastrointestinal Comment(s): GERD Reports as per HPI - Genitourinary Genitourinary: Denies dysuria, Denies hematuria Menstruation: Reports postmenopausal - Musculoskeletal Musculoskeleta Comment(s): left knee popping - Integumentary Integumentary Comment(s): occasional rash right breast goes away, same spot 10 times in last year Denies rash, Denies unusual bruising - Neurological Denies headaches, Denies syncope - Psychiatric Reports as per HPI - Endocrine Reports weight change - Hematologic/Lymphatic Denies easy bleeding, Denies easy bruising - Allergic/Immunologic Reports as per HPI, Reports seasonal allergies Past Medical History Past Medical History: GERD/Reflux Additional Past Medical History / Comment(s): vertigo if laying flat or sinus issues History of Any Multi-Drug Resistant Organisms: None Reported Past Surgical History: Breast Surgery, Cholecystectomy, Tubal Ligation Additional Past Surgical History / Comment(s): EGD. COLONOSCOPY. BREAST BIOPIES-NEG. Past Anesthesia/Blood Transfusion Reactions: Family History of Problems w/ Anesthesia, Motion Sickness Additional Past Anesthesia/Blood Transfusion Reaction / Comm: mom wakes up during surgeries Past Psychological History: Anxiety Additional Psychological History / Comment(s): NO MEDS AT THIS TIME Smoking Status: Never smoker Past Alcohol Use History: Rare Past Drug Use History: None Reported - Past Family History Mother Family Medical History: Deep Vein Thrombosis (DVT) Brother(s) Family Medical History: Cancer Additional Family Medical History / Comment(s): . Medications and Allergies Home Medications Medication Instructions Recorded Confirmed Type Pantoprazole Sodium [Protonix] 40 mg PO DAILY 07/23/15 02/17/25 History Fluticasone Nasal [place] [Flonase 1 spray NASAL DAILY PRN 02/27/22 02/17/25 History Nasal [place]] Famotidine [Pepcid] 40 mg PO HS 08/13/22 02/17/25 History Ibuprofen [Advil] 400 mg PO BID 08/13/22 02/17/25 History Cholecalciferol (Vitamin D3) 1,250 mcg PO WEEKLY 02/17/25 02/17/25 History [Vitamin D3 (1250 Mcg = 50,000 Iu)] lisinopriL [Zestril] 5 mg PO DAILY 02/17/25 02/17/25 History Allergies Allergy/AdvReac Type Severity Reaction Status Date / Time bee venom protein (honey bee) Allergy Rash/Hives Verified 02/17/25 07:51 codeine Allergy Rash/Hives Verified 02/17/25 07:51 levofloxacin [From Levaquin] Allergy Rash/Hives, Verified 02/17/25 07:51 HEART PALPITATIONS Surgical - Exam Vital Signs Temp Pulse Resp BP Pulse Ox 97.9 F 83 16 156/84 96 02/17/25 07:53 02/17/25 07:53 02/17/25 07:53 02/17/25 07:53 02/17/25 07:53 - General no distress - Eyes normal ocular movement - ENT no hearing loss - Neck trachea midline - Respiratory normal respiratory effort - Cardiovascular Rhythm: regular Heart Sounds: normal: S1, S2 - Abdomen Abdomen: soft, non tender, no guarding, no rigid, no rebound - Integumentary normal turgor - Neurologic no disoriented, no combative - Musculoskeletal normal gait - Psychiatric oriented to time, oriented to person, oriented to place, speech is normal, memory intact Breast Exam: BRA: 40C Inspection: Bilateral grade 2 ptosis, resolving ecchymosis right breast at biopsy site, fungal infection under right breast Palpation: Right breast: Multi positional exam mild fullness at 12 o'clock position related to recent biopsy but no discrete dominant masses or nodules of concern Right axilla: No adenopathy of concern Left breast: Multi positional exam no dominant masses or nodules of concern Left axilla: No adenopathy of concern Results Bilateral mammogram, right breast mammogram and ultrasound, post ultrasound biopsy right breast films personally reviewed and discussed with Dr. Delgado from radiology Intraductal papilloma with atypia on biopsy, recommendation for surgical resection Assessment and Plan Assessment: Impression: Intraductal papilloma right breast with atypia Fibrocystic breast changes Hypertension fungal infection under breast Plan: clearance Dr. Dread caballero under breat Right breast needle localization lumpectomy of intraductal papilloma site, possible right breast oncoplastic tissue transfer, injection of methylene blue at site of needle localization for mapping of the lesion location Consent: I have discussed the risks, benefits and alternative therapies for the above-mentioned procedure and for both sedation/analgesia as well as necessary blood product administration, if indicated, as they pertain to this patient. The patient has indicated understanding and acceptance of the risks and procedures discussed. Risk include but are not limited to, bleeding, infection, reaction to the anesthetic. There is a possibility that the needle could slip and the lesion not be excised in which case it would be necessary to get further tissue acquisition at a later date. The patient understands and wishes to proceed passed functional assessment: arm abduction pre-op education given to patient CC: Dr. Canada
== END ==
LOC: WWCWWP 07:42
PROVIDERS: ATTEND Surgery
DX: Z12.31 Encounter for screening mammogram for malignant neoplasm of breast (principal); N60.11 Diffuse cystic mastopathy of right breast; D05.11 Intraductal carcinoma in situ of right breast; I10 Essential (primary) hypertension; D37.9 Neoplasm of uncertain behavior of digestive organ, unspecified; Z91.030 Bee allergy status; Z88.5 Allergy status to narcotic agent; Z88.8 Allergy status to other drugs, medicaments and biological substances

== ENCOUNTER 2025-03-02 07:11 | Day surgery (SDC) | payer BC ==
[~2025-03-02 07:11] MED LIST changes: +HYDROmorphone 0.5 MG/0.5 ML SYRINGE IVP PRN; -LACTATED RINGERS 1,000 ML IV ONE; -LACTATED RINGERS 1,000 ML IV SCH; -LIDOCAINE 2% INJ 20 MG/ML (2 ML VIAL) ONE; +METHYLENE BLUE 50 MG, DEXTROSE 5% IN WATER 50 ML MISCELLANE ONE; -ONDANSETRON 4 MG/2 ML VIAL IVP PRN; -PROPOFOL 10 MG/ML 20 ML VIAL IV ONE
[2025-03-02] MEDS: ALPRAZolam 0.5 MG TAB PO STA (08:37)
[2025-03-02] MEDS: ACETAMINOPHEN TAB 500 MG TAB PO PRN (08:38)
[2025-03-02] MEDS: IV FLUID CONTINUATION 1,000 ML IV ONE (08:40)
[2025-03-02] MEDS: SCOPOLAMINE 1 MG/72 HR PATCH TRANSDERM STA (08:49)
[2025-03-02] MEDS: LACTATED RINGERS 1,000 ML IV SCH (08:51)
[2025-03-02] MEDS: SODIUM BICARB 8.4% 50 ML VIAL (1 MEQ/ML) MISCELLANE ONE (09:29)
[2025-03-02] MEDS: LIDOCAINE 1% INJ 10MG/ML (20 ML MDV) SQ ONE (09:29)
[2025-03-02] MEDS: METHYLENE BLUE 50 MG/10 ML VIAL MISCELLANE ONE (09:32)
[2025-03-02] MEDS: DEXAMETHASONE SOD PHOSPHATE 4 MG/ML 1 ML VIAL IV ONE (10:12)
[2025-03-02] MEDS: HEPARIN SODIUM,PORCINE 5,000 UNIT/ML 1 ML VIAL SQ PRN (10:12)
[2025-03-02] MEDS: ONDANSETRON 4 MG/2 ML VIAL IVP ONE (10:12)
[2025-03-02] MEDS: FAMOTIDINE 20 MG/2 ML VIAL IV STA (10:13)
[2025-03-02] MEDS ORDERED: LIDOCAINE 1% INJ 10MG/ML (20 ML MDV) ONE (10:54)
[2025-03-02] MEDS ORDERED: SUCCINYLCHOLINE CHLORIDE 200 MG/10 ML VIAL IV ONE (10:54)
[2025-03-02] MEDS ORDERED: fentaNYL (PF) 50 MCG/ML 2 ML AMP ONE (10:54)
[2025-03-02] MEDS ORDERED: PROPOFOL 10 MG/ML 20 ML VIAL IV ONE (10:54)
[2025-03-02] MEDS ORDERED: MIDAZOLAM 2 MG/2 ML VIAL ONE (10:54)
[2025-03-02] MEDS: ceFAZolin 2 GM in DEXTROSE 5% IN WATER 50 ML IVPB PRN (10:58)
[2025-03-02] MEDS: LIDOCAINE 2% INJ 20 MG/ML SQ ONE ×2 (11:24→11:37)
--- NOTE | 2025-03-02 12:03 | P.BCAON ---
Date of Procedure: 03/02/25 Preoperative Diagnosis: Core biopsy atypical intraductal papilloma Postoperative Diagnosis: Same Procedure(s) Performed: Localization excisional lumpectomy, oncoplastic tissue transfer 52 cm Anesthesia: GETA Surgeon: Annelise Francis Estimated Blood Loss (ml): 8 IV fluids (ml): 800 Pathology: other (Breast tissue) Condition: stable Disposition: same day Indications for Procedure: Atypical intraductal papilloma right breast Operative Findings: Fibrofatty breast tissue Description of Procedure: The patient was seen initially in the radiology department for needle localization of the area of concern was performed. Additionally it was marked using 1 cc of methylene blue. The patient was brought to the operative suite. Following induction of anesthesia the right breast was prepped and draped in a sterile fashion. An incision was made and carried down to the shaft of the needle. This was brought out through the incision. The tissue surrounding the tip of the needle as well as the blue dyed tissue was excised. The specimen was 7 x 4 cm. The specimen was painted for orientation. Radiograph revealed that the area of concern had been removed. The wound was well irrigated. A superior pedicle 5 x 3 cm was formed. An inferior pedicle 4.5 x 2 cm was formed. Titanium clips were placed in the cavity. The pedicles were brought together and secured using 3-0 Vicryl suture. The patient had Surgicel and powder form placed in the cavity. The subcutaneous tissue was closed using 3-0 Vicryl suture. This was followed by closure of the subcu ocular suture with 4-0 Monocryl. 5 cc of 2% lidocaine were injected into the incision. The patient tolerated the procedure in stable condition. All instrument and sponge counts were correct at the end of the case.
[2025-03-02] MEDS: LACTATED RINGERS 1,000 ML IV ONE (12:19)
[2025-03-02 12:34] VITALS: TEMP 97.5
[2025-03-02 14:02] VITALS: RESP 18
[2025-03-02 16:02] VITALS: BP 179/89; PULSE 72
--- NOTE | 2025-03-08 13:49 | MM ---
Reason for Exam: Post Procedure Mammogram. Last screening mammogram was performed 1 month(s) ago. Patient History: Menarche at age 15. First Full-Term at age 25. Postmenopausal. 02/05/2025, High risk US biopsy breast VAD RT on the right side. 2000, Core Biopsy on the Left side. Excisional Biopsy on the Left side. Excisional Biopsy on the Right side. Paternal cousin had breast cancer, age 30. Maternal aunt had breast cancer, age 50. Risk Values: Monica 5 year model risk: 2.1%. NCI Lifetime model risk: 8.9%. Prior Study Comparison: 01/27/2025 Bilateral MG 3D screening mammo w/cad, [facility]. 01/29/2025 Right MG 3D work up w/cad RT, [facility]. 02/05/2025 Right MG diagnostic mammo RT wo CAD, [facility]. Tissue Density: Right: The breasts are extremely dense, which lowers the sensitivity of mammography. Pathology Description: Location: 12 o'clock. Needle Type: 7 cm [place] Informed consent was obtained and all the patient's questions were answered. The lesion in question was localized sonographically. The standard sterile technique was utilized, as well as appropriate local anesthesia with 1% Lidocaine and bicarbonate. Localization needle followed by placement of a guidewire was performed under sonographic guidance. Methylene blue was injected for surgical assistance. Verification images demonstrate appropriate deployment of the guidewire. The patient tolerated the procedure well and left the department in stable condition. Specimen radiograph demonstrates the mass and guidewire in question to reside within the specimen. The deployed radiopaque clip marker which was outside of the lesion is not visualized. IMPRESSION: Successful needle localization and open biopsy right breast with pathology results pending . [facility], , 03/02/2025 11:49 AM. Pathology Results: Result: High risk, Papilloma-high risk. Pathology and radiology were reviewed. Findings are concordant. RIGHT BREAST, LUMPECTOMY: Sclerotic papilloma with focal atypia, surrounding scar and adjacent biopsy site change with remote hemorrhage and chronic mastitis. Papilloma completely excised. Proliferative fibrocystic change with columnar cell change, florid usual ductal hyperplasia, fibrous scar, sclerosing adenosis and microcalcification. Focal papillomatosis and mammary duct ectasia. Margins benign. Overall Assessment: High risk Assessment: MG diagnostic mammo RT wo CAD - Right: Benign, BI-RAD 2. Management: Diagnostic Mammogram of the right breast in 6 months. Electronically signed and approved by: Gabino Ruiz M.D. Radiologis
== END 2025-03-02 16:05 | disposition home or self-care (01) ==
LOC: OR 07:11
PROVIDERS: ATTEND Surgery
DX: D24.1 Benign neoplasm of right breast (principal); N60.21 Fibroadenosis of right breast; N60.11 Diffuse cystic mastopathy of right breast; L90.5 Scar conditions and fibrosis of skin; N60.41 Mammary duct ectasia of right breast; Z78.0 Asymptomatic menopausal state; Z80.3 Family history of malignant neoplasm of breast
CPT/HCPCS: 19301; 14301; 88307; 77065; 76098; 19285; C1819; J2250; J0330; J1644; J1100; J0690; J2405; J2003 ×2; J3010; J2704; Q9968; J1308

== ENCOUNTER → 2025-03-11 | Outpatient (CLI) | payer BC ==
[2025-03-11 12:37] VITALS: BP 152/93; PULSE 70; RESP 17; TEMP 97.9
--- NOTE | 2025-03-11 12:48 | P.BCPO ---
Progress Note - Text Progress Note Date: 03/11/25 Khushboo is status post excision of a right breast papilloma with atypia on 03-02-25. She is doing well with respect to her breast however she is complaining of some vertigo since the surgery. She is following with your primary care doctor with respect to this. Examination: Lungs: Clear Heart: Regular rate and rhythm Incision: Clean and dry There is a fungal infection under her right breast Impression: Patient doing well postop however she does have some vertigo following with primary care doctor Plan: Continue to follow with primary care doctor regarding vertigo Follow-up right breast mammogram and examination in 6 months related to right breast intraductal papilloma Monica Risk Analysis: 5 year risk; 2.1% lifetime risk: 8.9% NENA: Dread
== END ==
LOC: WWCWWP 12:26
PROVIDERS: ATTEND Surgery
DX: R42 Dizziness and giddiness (principal); Z86.018 Personal history of other benign neoplasm; Z91.048 Other nonmedicinal substance allergy status; Z88.5 Allergy status to narcotic agent; Z88.1 Allergy status to other antibiotic agents; Z91.030 Bee allergy status